=== PATIENT | female | born 1980 | race Caucasian/White ===

== ENCOUNTER 2018-05-26 20:44 | Emergency (ER) | payer OTHER ==
[~2018-05-26] VITALS: Ht 165.1 cm; Wt 86.2 kg
[2018-05-26] MEDS ORDERED: SYMBICORT160 MCG/4. INH (20:53)
[2018-05-26] MEDS ORDERED: PROAIR RESPICL90 MCG INH (20:54)
[2018-05-26] MEDS ORDERED: IBUPROFEN 800800 M1 PO (21:30)
[2018-05-26 21:39] VITALS: BP 149/97
== END 2018-05-26 21:40 | disposition still patient (30) ==
LOC: M.ERS 20:44
DX: S86.912A Strain of unspecified muscle(s) and tendon(s) at lower leg level, left leg, initial encounter (principal); J45.909 Unspecified asthma, uncomplicated; Z90.49 Acquired absence of other specified parts of digestive tract; Z90.710 Acquired absence of both cervix and uterus; W10.9XXA Fall (on) (from) unspecified stairs and steps, initial encounter; Y93.89 Activity, other specified; Y92.89 Other specified places as the place of occurrence of the external cause; Y99.8 Other external cause status